=== PATIENT | female | born 2000 | race Two or more races ===

== ENCOUNTER 2023-06-25 12:55 | Inpatient (IN) ==
[2023-06-25] MEDS ORDERED: Ondansetron 4 mg VIAL 2 MG/ML 2 ml VIAL ONE (13:05)
[2023-06-25] MEDS ORDERED: Succinylcholine 200 mg VIAL 20 mg/ml 10 ml VIAL (200 mg) ONE (13:06)
[2023-06-25] MEDS ORDERED: Rocuronium 50 mg VIAL 10 mg/ml 5 ml VIAL (50 mg) ONE (13:06)
[2023-06-25] MEDS ORDERED: LORazepam 2 mg VIAL 1 ml ONE (13:20)
[2023-06-25 13:23] LABS: Hematocrit 32.8 % (35-45); Hemoglobin 10.2 g/dL (11.5-14.3); Mean Corpuscular Hemoglobin 19.9 pg (27-33); Mean Corpuscular Volume 64.2 fL (80-97); Mean Platelet Volume 8.2 fL (7.5-11.2); Platelet Count 377 10^3/uL (150-450); Red Blood Count 5.11 10^6/uL (3.63-4.92); Red Cell Distribution Width 15.7 % (12-17); White Blood Count 20.2 10^3/uL (3.8-11.8)
[2023-06-25] MEDS ORDERED: Propofol 10 mg/ml 100 ML BTL 1,000 MG/100 ML BTL ONE (13:27)
[2023-06-25] MEDS ORDERED: cefTRIAXone 1 gm/50 mL D5W 1 GM/50 ML BAG IV ONE (13:28)
[2023-06-25] MEDS: Propofol 10 mg/ml 100 ML BTL 1,000 MG/100 ML BTL IV SCH ×3 (13:45→23:08)
[2023-06-25 13:51] LABS: ALT 12 U/L (7-52); AST 17 U/L (13-39); Albumin 4.6 g/dL (3.2-5.2); Albumin/Globulin Ratio 1.6 (1-3); Alkaline Phosphatase 56 U/L (35-149); Anion Gap 11 mmol/L (2-16); Blood Urea Nitrogen 7 mg/dL (6-24); CO2 Carbon Dioxide 24 mmol/L (22-32); Calcium 9.6 mg/dL (8.6-10.3); Chloride 101 mmol/L (101-111); Globulin 2.8 g/dL (2-4); Glucose 150 mg/dL (70-100); Lipase 11 U/L (11.0-82.0); Magnesium 1.8 mg/dL (1.9-2.7); Phosphorus 3.8 mg/dL (2.5-5.0); Potassium 3.2 mmol/L (3.5-5.0); Sodium 136 mmol/L (135-145); Total Protein 7.4 g/dL (6.4-8.9); eGFR CKD-EPI 130.9 (>60)
[2023-06-25] MEDS ORDERED: fentaNYL 100 mcg/2 ml 50 MCG/ML VIAL ONE (13:57)
[2023-06-25] MEDS ORDERED: fentaNYL INFUSION 50 mcg/mL VL 2,500 MCG/50 ML VIAL IV SCH (14:00)
[2023-06-25 14:08] LABS: ABS Basophils 0.1 10^3/uL (0.0-0.1); ABS Eosinophils 0.7 10^3/uL (0.0-0.5); ABS Lymphocytes 4.3 10^3/uL (1.0-4.8); ABS Monocytes 1.1 10^3/uL (0.0-0.9); ABS Neutrophils 13.9 10^3/uL (1.5-7.6); ABS Nucleated RBC 0.01 10^3/ul; Eosinophil % 3.6 %; Lymphocyte % 21.5 %
[2023-06-25 14:10] LABS: HCG Pregnancy < 0.60 mIU/mL; Microcytosis 3+
[2023-06-25 14:11] LABS: Hypochromasia 2+
[2023-06-25 14:51] LABS: Urine Appearance Cloudy; Urine Bilirubin Negative (Negative); Urine Blood Negative (Negative); Urine Color Amber; Urine Glucose Negative (Negative); Urine Ketones Trace (Negative); Urine Nitrite Negative (Negative); Urine Protein Negative (Negative); Urine Urobilinogen Negative (Negative)
[2023-06-25] MEDS ORDERED: Lidocaine 1% MPF 5 ML VIAL ONE ×2 (15:02→15:12)
[2023-06-25 15:04] LABS: Urine Benzodiazepine Screen None Detected (None Detect); Urine Cannabinoids Screen Presumptive Positive (None Detect); Urine Opiates Screen None Detected (None Detect)
[2023-06-25 15:08] LABS: Urine Benzodiazepine Screen None Detected (None Detect); Urine Cannabinoids Screen Presumptive Positive (None Detect); Urine Opiates Screen None Detected (None Detect)
[2023-06-25 15:14] LABS: Resp Rate 14
[2023-06-25 15:15] LABS: PCO2 Arterial 37 mmHg (35-45); PO2 Arterial 333 mmHg (80-100)
[2023-06-25 15:42] LABS: Body Fluid Source Cerebral Spinal
[2023-06-25 15:55] LABS: CSF Glucose 86 mg/dL (40-70)
[2023-06-25 16:27] LABS: Body Fluid Appearance Clear; CSF Tube # 4
[2023-06-25 16:28] LABS: Body Fluid Color Colorless; Body Fluid WBC 1 /mcL
[2023-06-25] MEDS ORDERED: Piperacillin/Tazobac 3.375 BAG 3.375 GM/100 ML BAG IV ONE ×2 (16:43→19:00)
[2023-06-25] MEDS ORDERED: Zosyn per Pharmacy NOTE FOLLOW UP SCH (17:00)
[2023-06-25] MEDS: NS 0.9% 1000 ml BAG 1,000 ML IV SCH (17:44)
[2023-06-25 17:45] LABS: Body Fluid Mono 10 %; Body Fluid Total Cells Counted 10
[2023-06-25 19:31] LABS: Urine Buprenorphine Screen None Detected (None Detect); Urine Fentanyl Screen Presumptive Positive (None Detect); Urine Hydrocodone Screen None Detected (None Detect)
[2023-06-25] MEDS ORDERED: NS 0.9% 1000 ml BAG 1,000 ML IV ONE (19:41)
[2023-06-25] MEDS ORDERED: Magnesium Sulfate 2 gm BAG 2 GM/50 ML BAG IVPB ONE (19:56)
[2023-06-25] MEDS ORDERED: Chlorhexidine MOUTHWASH 0.12% 15 ML UDC TOPICAL SCH (21:00)
[2023-06-25] MEDS: Famotidine IV 10 MG/ML 2 ml VIAL (20 mg) IV SLOW PU SCH (21:08)
[2023-06-25] MEDS: KCL 10 MEQ/50 ML IVPREMIX 10 MEQ/50 ML BAG IV SCH ×3 (21:19→23:36)
[2023-06-25] MEDS ORDERED: Midazolam 5 mg/5 ml VIAL 1 mg/ml 5 ml VIAL (5 mg) IV SLOW PU ONE (22:09)
[2023-06-25] MEDS ORDERED: Midazolam 5 mg/5 ml VIAL 1 mg/ml 5 ml VIAL (5 mg) ONE (22:09)
[2023-06-25] MEDS: Artificial Tear OPHTH.OINT 3.5 GM BOTH EYES SCH (23:07)
[2023-06-25] MEDS: ZOSYN 3.375 GM Q8H per EXTENDED INFUSION IV SCH (23:55)
[2023-06-26] MEDS ORDERED: Lactated Ringers 1000 ml BAG 1,000 ML IV ONE (00:27)
[2023-06-26] MEDS: Artificial Tear OPHTH.OINT 3.5 GM BOTH EYES SCH ×3 (01:31→10:47)
[2023-06-26] MEDS: Chlorhexidine MOUTHWASH 0.12% 15 ML UDC TOPICAL SCH ×3 (01:31→11:04)
[2023-06-26] MEDS: NS 0.9% 1000 ml BAG 1,000 ML IV SCH (01:31)
[2023-06-26] MEDS: Propofol 10 mg/ml 100 ML BTL 1,000 MG/100 ML BTL IV SCH (03:31)
[2023-06-26 05:40] LABS: Anion Gap 9 mmol/L (2-16); Blood Urea Nitrogen 6 mg/dL (6-24); CO2 Carbon Dioxide 23 mmol/L (22-32); Calcium 8.3 mg/dL (8.6-10.3); Chloride 103 mmol/L (101-111); Glucose 91 mg/dL (70-100); Magnesium 2.1 mg/dL (1.9-2.7); Potassium 3.8 mmol/L (3.5-5.0); Sodium 135 mmol/L (135-145); eGFR CKD-EPI 130.9 (>60)
[2023-06-26 05:44] LABS: Hematocrit 27.4 % (35-45); Mean Corpuscular Hemoglobin 20.7 pg (27-33); Mean Corpuscular Hgb Conc 32.9 g/dL (31-36); Mean Corpuscular Volume 62.9 fL (80-97); Mean Platelet Volume 8.9 fL (7.5-11.2); Platelet Count 266 10^3/uL (150-450); Red Blood Count 4.35 10^6/uL (3.63-4.92); Red Cell Distribution Width 15.5 % (12-17); White Blood Count 19.4 10^3/uL (3.8-11.8)
[2023-06-26 05:53] LABS: % Iron Saturation 7 % (15-55); .Transferrin 199 mg/dL (203-362); Iron < 20 ug/dL (50-212); Total Iron Binding Capacity 279 mcg/dL (250-450); Unsaturated Iron Binding 259 ug/dL
[2023-06-26] MEDS: Famotidine IV 10 MG/ML 2 ml VIAL (20 mg) IV SLOW PU SCH (08:12)
[2023-06-26] MEDS: ZOSYN 3.375 GM Q8H per EXTENDED INFUSION IV SCH ×2 (08:12→16:37)
[2023-06-26] MEDS ORDERED: Ondansetron 4 mg VIAL 2 MG/ML 2 ml VIAL IV PRN (10:03)
[2023-06-26] MEDS ORDERED: Ondansetron 4 mg VIAL 2 MG/ML 2 ml VIAL ONE (10:07)
[2023-06-26 11:28] LABS: Ferritin 22.9 ng/mL (11-307)
[2023-06-26 11:31] LABS: Folate > 20.00 ng/mL (5.90-24.80)
[2023-06-26 11:32] LABS: Vitamin B12 592 pg/mL (180-914)
[2023-06-26] MEDS ORDERED: Fluorescein Sodium TOPICAL TEST STRIP OPHTHALMIC ONE (13:02)
[2023-06-26] MEDS ORDERED: Tetracaine 0.5% OPTH.SOL 4 ML BTL LEFT EYE SCH (13:30)
[2023-06-26] MEDS ORDERED: Erythromycin OPTH OINT APPLIC OINT LEFT EYE SCH (14:00)
[2023-06-26] MEDS ORDERED: Tetracaine 0.5% OPTH.SOL 4 ML BTL LEFT EYE ONE (15:00)
[2023-06-26] MEDS: Erythromycin OPTH OINT APPLIC OINT LEFT EYE SCH ×2 (16:37→20:55)
[2023-06-27] MEDS: ZOSYN 3.375 GM Q8H per EXTENDED INFUSION IV SCH ×2 (00:49→07:44)
[2023-06-27] MEDS: Erythromycin OPTH OINT APPLIC OINT LEFT EYE SCH ×2 (05:51→10:55)
[2023-06-27 05:56] LABS: ABS Basophils 0.1 10^3/uL (0.0-0.1); ABS Eosinophils 0.9 10^3/uL (0.0-0.5); ABS Lymphocytes 2.2 10^3/uL (1.0-4.8); ABS Monocytes 0.8 10^3/uL (0.0-0.9); ABS Neutrophils 7.1 10^3/uL (1.5-7.6); ABS Nucleated RBC 0.01 10^3/ul; Eosinophil % 7.8 %; Hematocrit 26.1 % (35-45); Hemoglobin 8.5 g/dL (11.5-14.3); Mean Corpuscular Hemoglobin 20.5 pg (27-33); Mean Corpuscular Hgb Conc 32.5 g/dL (31-36); Mean Corpuscular Volume 63.2 fL (80-97); Mean Platelet Volume 7.9 fL (7.5-11.2); Nucleated Red Blood Cells % 0.1 /100 WBC (0.0-0.4); Platelet Count 264 10^3/uL (150-450); Red Blood Count 4.13 10^6/uL (3.63-4.92); Red Cell Distribution Width 15.9 % (12-17); White Blood Count 11.1 10^3/uL (3.8-11.8)
[2023-06-27 06:11] LABS: Albumin 3.4 g/dL (3.2-5.2); Albumin/Globulin Ratio 1.3 (1-3); Calcium 8.1 mg/dL (8.6-10.3); Creatinine, Serum 0.56 mg/dL (0.51-0.95); Globulin 2.6 g/dL (2-4); Potassium 3.6 mmol/L (3.5-5.0); Total Bilirubin 0.7 mg/dL (0.2-1.0); eGFR CKD-EPI 133.1 (>60)
[2023-06-27] MEDS: Artificial Tear OPHTH.OINT 3.5 GM BOTH EYES SCH (07:12)
[2023-06-27] MEDS: Chlorhexidine MOUTHWASH 0.12% 15 ML UDC TOPICAL SCH (07:12)
[2023-06-27 13:27] VITALS: BP 109/70
[2023-06-28 13:05] LABS: HSV 1 PCR, CSF Negative (Negative); HSV 2 PCR, CSF Negative (Negative)
[2023-07-02 18:17] LABS: AGNA-1, CSF Negative (Negative); ANNA-1, CSF Negative (Negative); ANNA-2, CSF Negative (Negative); ANNA-3, CSF Negative (Negative); Amphiphysin Ab, CSF Negative (Negative); CRMP-5-IgG, CSF Negative (Negative); IFA Notes None.; PCA-1, CSF Negative (Negative); PCA-2, CSF Negative (Negative); PCA-Tr, CSF Negative (Negative)
== END 2023-06-27 13:45 | disposition home or self-care (01) | DRG 91 ==
LOC: ED 12:55 → EDHOLD 15:01 → ICU 16:05
PROVIDERS: ADMIT Internal Medicine Critical Care Medicine; ATTEND Internal Medicine Critical Care Medicine